=== PATIENT | male | born 2000 | race Caucasian/White ===

== ENCOUNTER → 2020-02-26 13:02 | Outpatient (CLI) | payer OTHER, SELFPAY ==
--- NOTE | ~2020-02-26 | MR_ITS ---
EXAMINATION: MR brain/brain stem wo con EXAM DATE: 02/26/2020 13:40 INDICATION: Syncope. TECHNIQUE: Magnetic resonance imaging (MRI) of the brain/brain stem obtained without contrast. Sagitt al T1, axial diffusion, gradient echo (T2*), T1, T2, FLAIR sequences obtained. There is no prior st udy for comparison. FINDINGS: There are no areas of restricted diffusion to suggest acute infarction. There is no acute hemorrhage seen on the T2*, a hemosiderin sensitive sequence. No intraparenchymal brain mass. The ve ntricles are normal in size. There are no extra-axial collections. Flow voids are seen in the cereb ral arteries on the T2-weighted sequences consistent with their expected patency. The orbits are unr emarkable. Soft tissue is unremarkable. IMPRESSION: 1. Normal brain MRI examination. Reviewed, dictated and finalized at location A.
== END ==
PROVIDERS: PCP Nurse Practitioner Family; Visit Provider Nurse Practitioner Family
DX: R55 Syncope and collapse (principal); R56.9 Unspecified convulsions
CPT/HCPCS: 70551

== ENCOUNTER 2023-10-07 18:25 | Emergency (ER) | payer SELFPAY ==
--- NOTE | 2023-10-07 18:28 | ECG_ITS ---
Measurements Intervals [place] Rate: 71 P: 60 MN: 144 QRS: 44 QRSD: 82 T: 54 QT: 372 QTc: 406 Interpretive Statements SINUS RHYTHM WITH SINUS ARRHYTHMIA NORMAL ECG NO PREVIOUS ECG AVAILABLE FOR COMPARISON Electronically Signed On 10-07-2023 19:17:29 [employer] by Juan Kelly D.O.
[2023-10-07 19:15] LABS: Basophils Absolute Auto 0.1 K/mm3 (0.0-0.1); Basophils Percent Auto 0.5 % (0.2-1.2); Eosinophils Absolute Auto 0.4 K/mm3 (0-0.3); Eosinophils Percent Auto 2.9 % (0-4.4); Hematocrit 48.9 % (42.0-52.0); Hemoglobin 15.3 g/dL (14.0-18.0); Immature Granulocyte Absolute 0.04 K/mm3 (0.00-0.031); Immature Granulocyte Percent A 0.3 % (0-0.5); Lymphocytes Absolute Auto 3.58 K/mm3 (0.9-3.2); Lymphocytes Percent Auto 27.3 % (18.3-44.2); Mean Corpuscular HGB Conc 31.3 g/dl (32-36); Mean Corpuscular Hemoglobin 30.5 pg (26-34); Mean Corpuscular Volume 97.4 fl (80-100); Mean Platelet Volume 9.9 fl (7.4-10.4); Monocytes Absolute Auto 0.8 K/mm3 (0.1-0.6); Monocytes Percent Auto 6.4 % (2.6-8.5); Neutrophils Absolute Auto 8.2 K/mm3 (1.3-6.7); Neutrophils Percent Auto 62.6 % (45.5-73.1); Platelet Count Result 263 k/mm3 (150-375); Red Blood Count 5.02 M/mm3 (4.6-6.20); Red Cell Distribution Width 12.5 % (11.5-14.5); White Blood Count 13.1 K/mm3 (4.5-10.0)
[2023-10-07 19:25] LABS: Alanine Aminotransferase 39 U/L (6-50); Albumin Level 3.8 g/dL (3.5-5.1); Alkaline Phosphatase 68 U/L (38-126); Anion Gap 7 mmol/L (8-16); Aspartate Amino Transferase 34 U/L (17-59); Bilirubin,Total 0.6 mg/dL (0.2-1.3); Blood Urea Nitrogen 10 mg/dL (9-20); Calcium 8.9 mg/dL (8.4-10.2); Carbon Dioxide 21 mmol/L (22-30); Chloride 107 mmol/L (98-107); Estimated Glomerular Filt Rate > 60; Glucose 98 mg/dL (65-110); Potassium 3.9 mmol/L (3.4-5.0); Sodium 135 mmol/L (137-145)
--- NOTE | 2023-10-07 19:29 | PC.NURSE ---
1st call for triage, no answer
== END 2023-10-07 20:52 | disposition left against medical advice (07) ==
PROVIDERS: Emergency Provider Student in an Organized Health Care Education/Training Program; PCP Nurse Practitioner Family
DX: Z53.21 Procedure and treatment not carried out due to patient leaving prior to being seen by health care provider (principal)
CPT/HCPCS: 36415; 80053; 85025; 93005; 99199

== ENCOUNTER 2024-04-02 22:45 | Emergency (ER) | payer OTHER, SELFPAY ==
--- NOTE | ~2024-04-02 | CT_ITS ---
Non-contrast CT scan of the Abdomen and Pelvis Clinical indication: Back pain Technique: 2.5 mm axial scans were obtained through the abdomen and pelvis without intravenous or or al contrast. Dose reduction technique was used on this scan by utilizing automated exposure control a nd iterative reconstruction technique. The dose-length product (DLP) was 1907.15 mGy-cm. Findings: Images through the lung bases reveal no abnormalities. There is no evidence of renal or ureteral calculi. The kidneys and the ureters are nondilated. The liver, spleen, pancreas, gallbladder, and adrenals appear normal. There is no aortic aneurysm. There is no evidence of bowel obstruction. Normal appendix. Images through the pelvis were performed. There is no evidence of ascites or lymphadenopathy. Urinary bladder unremarkable. No pelvic mass seen. Impression: Unremarkable exam. Reviewed, dictated and finalized at [facility]. Impression: Unremarkable exam.
--- NOTE | ~2024-04-02 | US_ITS ---
Testicular ultrasound with doppler. Indication: Left testicular pain. Technique: Real-time sonography the scrotum was performed. Color flow Doppler and Doppler spectral an alysis were performed. Findings: The testes are homogeneous in echotexture bilaterally. There is no evidence of an intrates ticular mass. The right testis measures 2.6 x 2.1 x 2.1 cm and the left 2.5 x 2.1 x 3.1 cm. There is color-flow seen to both testes. Arterial and venous spectral waveforms are seen in both testes. There is no sonographic evidence of torsion. 7 mm left epididymal head cyst or spermatocele probably prese nt. Right epididymis unremarkable. Impression: No significant abnormality seen. No testicular mass or torsion. 7 mm left epididymal head cyst or spermatocele likely present. Reviewed, dictated and finalized at [facility]. Impression: No significant abnormality seen. No testicular mass or torsion. 7 mm left epididymal head cyst or spermatocele likely present.
[2024-04-02 22:46] VITALS: BP 128/83; PULSE 91; RESP 14; TEMP 37.1; O2SAT 94
[2024-04-02 22:55] VITALS: PULSE 81; RESP 15; O2SAT 92
[2024-04-02 23:00] VITALS: O2SAT 94
[2024-04-02 23:09] LABS: Basophils Percent Auto 0.3 % (0.2-1.2); Eosinophils Absolute Auto 0.3 K/mm3 (0-0.3); Eosinophils Percent Auto 2.4 % (0-4.4); Hematocrit 45.2 % (42.0-52.0); Hemoglobin 14.9 g/dL (14.0-18.0); Immature Granulocyte Absolute 0.03 K/mm3 (0.00-0.031); Immature Granulocyte Percent A 0.2 % (0-0.5); Lymphocytes Percent Auto 33.4 % (18.3-44.2); Mean Corpuscular Hemoglobin 30.9 pg (26-34); Mean Corpuscular Volume 93.8 fl (80-100); Mean Platelet Volume 9.7 fl (7.4-10.4); Monocytes Absolute Auto 0.7 K/mm3 (0.1-0.6); Monocytes Percent Auto 5.8 % (2.6-8.5); Neutrophils Absolute Auto 7.1 K/mm3 (1.3-6.7); Neutrophils Percent Auto 57.9 % (45.5-73.1); Platelet Count Result 292 k/mm3 (150-375); Red Blood Count 4.82 M/mm3 (4.6-6.20); Red Cell Distribution Width 12.3 % (11.5-14.5); White Blood Count 12.3 K/mm3 (4.5-10.0)
[2024-04-02 23:19] LABS: Alanine Aminotransferase 41 U/L (6-50); Albumin Level 4.4 g/dL (3.5-5.1); Alkaline Phosphatase 54 U/L (38-126); Anion Gap 9 mmol/L (4-12); Aspartate Amino Transferase 43 U/L (17-59); Bilirubin,Total 0.4 mg/dL (0.2-1.3); Blood Urea Nitrogen 13 mg/dL (9-20); Carbon Dioxide 25 mmol/L (22-30); Chloride 101 mmol/L (98-107); Estimated CRCL calculation 143 ml/min; Estimated Glomerular Filt Rate > 60; Glucose 114 mg/dL (65-110); Lipase 425 U/L (23-300); Potassium 3.9 mmol/L (3.4-5.0); Sodium 135 mmol/L (137-145)
--- NOTE | 2024-04-02 23:42 | PC.NURSE ---
Called to add on ethanol level, spoke with Lorenza.
[2024-04-02] MEDS: KETOROLAC 15 MG/ML VIAL (*BKC) IV PUSH (23:52)
[2024-04-02 23:55] LABS: Ethanol < 10 mg/dL (<10)
--- NOTE | 2024-04-03 00:01 | PC.NURSE ---
US in room with patient.
[2024-04-03 01:04] VITALS: BP 117/73; PULSE 77; RESP 16; O2SAT 93
[2024-04-03 01:23] LABS: Amphetamine Screen Urine Negative (Negative); Barbiturate Screen Urine Negative (Negative); Benzodiazepines Screen Urine Positive (Negative); Cannabinoid Screen Urine Positive (Negative); Cocaine Screen Urine Negative (Negative); Methadone Screen Urine Negative (Negative); Opiate Screen Urine Negative (Negative); Phencyclidine Screen Urine Negative (Negative)
[2024-04-03 01:39] LABS: Bacteria Urine None Seen /hpf; Granular Casts Urine Present /lpf; Mucus Urine Present /lpf; Need Manual Microscopic Reviewed; RBC Urine 0-2 /hpf (0-2); Squamous Epithelial Cell Urine Occasional /hpf (Few); WBC Urine 0-5 /hpf (0-3)
--- NOTE | 2024-04-03 01:44 | ED.GENADULT ---
HPI - General Adult General Chief complaint: Abdominal Pain Stated complaint: LLQ ABD PAIN Time Seen by Provider: 04/02/24 23:10 History of Present Illness HPI narrative: This is a 23-year-old male presenting ED with a chief complaint of left testicle pain. Started 2 hours prior to arrival. Sharp pain in his left testicle that radiates into his lower stomach. Pain is a 3/4. It is constant. He has never had pain like this before it is worse with movement. Patient denies hematuria or dysuria. He denies fevers chills nausea vomiting or diarrhea. Patient is not sexually active. Related Data Allergies Allergy/AdvReac Type Severity Reaction Status Date / Time Penicillins Allergy Unknown Other Verified 04/02/24 22:51 Cat Dander Allergy Mild Other Uncoded 04/02/24 22:51 AMOXICILLIN TRIHYDRATE Allergy Unknown Other Uncoded 04/02/24 22:51 POTASSIUM CLAVULANATE Allergy Unknown Other Uncoded 04/02/24 22:51 Exam Narrative: APPEARANCE: No apparent distress. Head: atraumatic. EYES: EOMI, NOSE: Atraumatic NECK: Trachea midline RESPIRATORY: No increased rate of breathing CARDIOVASCULAR: RRR, ABDOMINAL: Obese, soft nontender no guarding rebound. exam: Buried penis, normal testicular lie, no focal areas of tenderness left testicle is diffusely tender without masses overlying skin change MUSCULOSKELETAl: No obvious deformities NEURO: Alert. Moving 4/4 extremities SKIN:: Warm, dry. Normal color PSYCHIATRIC: Normal affect Course Vital Signs Vital signs: Vital Signs Temperature 98.7 F 04/02/24 22:46 Pulse Rate 91 04/02/24 22:46 Respiratory Rate 14 04/02/24 22:46 Blood Pressure 128/83 04/02/24 22:46 Pulse Oximetry 94 04/02/24 22:46 Oxygen Delivery Room Air 04/02/24 22:46 Temperature 98.7 F 04/02/24 22:46 Pulse Rate 77 04/03/24 01:04 Respiratory Rate 16 04/03/24 01:04 Blood Pressure 117/73 04/03/24 01:04 Pulse Oximetry 93 04/03/24 01:04 Oxygen Delivery Room Air 04/02/24 22:46 Medical Decision Making [facility] Narrative Medical decision making narrative: -Course:This is a 23-year-old male presenting with left-sided testicular pain. Physical exam showed a normal lie, epididymal tenderness, no overlying skin changes. Scrotal ultrasound showed no evidence of torsion. There is a small epididymal cyst. CT abdomen pelvis was also unremarkable. on re-evaluation I went to the room and the patient was soundly sleeping in no distress. He was informed of his results. patient will be discharged on antibiotics for epididymitis and given Urology follow-up. -DDX includes but is not limited to: torsion, epididymitis, orchitis, kidney stone, hernia -Co-morbidities complicating care: obesity -Independent interpretation of studies: labs and imaging reviewed -Interventions: Toradol, levofloxacin -Shared decision making / Disposition: discharge -RX levofloxacin 500 mg bid x10 days. Vital Signs Vital Signs: Vital Signs Temperature 98.7 F 04/02/24 22:46 Pulse Rate 91 04/02/24 22:46 Respiratory Rate 14 04/02/24 22:46 Blood Pressure 128/83 04/02/24 22:46 Pulse Oximetry 94 04/02/24 22:46 Oxygen Delivery Room Air 04/02/24 22:46 Temperature 98.7 F 04/02/24 22:46 Pulse Rate 77 04/03/24 01:04 Respiratory Rate 16 04/03/24 01:04 Blood Pressure 117/73 04/03/24 01:04 Pulse Oximetry 93 04/03/24 01:04 Oxygen Delivery Room Air 04/02/24 22:46 Lab Data 04/02/24 22:54 04/02/24 22:54 Labs: Lab Results 04/02/24 04/03/24 Range/Units 22:54 00:59 WBC 12.3 H (4.5-10.0) K/mm3 RBC 4.82 (4.6-6.20) M/mm3 Hgb 14.9 (14.0-18.0) g/dL Hct 45.2 (42.0-52.0) % MCV 93.8 (80-100) fl MCH 30.9 (26-34) pg MCHC 33.0 (32-36) g/dl RDW 12.3 (11.5-14.5) % Plt Count 292 (150-375) k/mm3 MPV 9.7 (7.4-10.4) fl Immature Gran % (Auto) 0.2 (0-0.5) % Neut % (Auto) 57.9 (45.5-73.1) % Lymph % (Auto)
[2024-04-03 01:46] LABS: Add Urine Microscopic? YES; Appearance Urine Clear (Clear); Color Urine Yellow (Yellow); pH Urine 5.5 (5.0-9.0)
[2024-04-03 01:47] LABS: Bilirubin Urine Negative (Negative); Blood Urine Negative (Negative); Glucose Urine UA Negative (Negative); Ketones Urine Negative (Negative); Nitrate Urine Negative (Negative); Protein Urine 2+ mg/dL (Negative); Specific Grav Ur >= 1.030 (1.001-1.035); Urobilinogen Urine 0.2 mg/dL (<2.0)
[2024-04-03 01:48] LABS: Leukocyte Esterase Ur Negative LEU/UL (Negative)
== END 2024-04-03 02:21 | disposition home or self-care (01) ==
PROVIDERS: Emergency Provider Emergency Medicine; PCP Nurse Practitioner Family
DX: N45.1 Epididymitis (principal)
CPT/HCPCS: 36415; 74176; 76870; 80053; 80307; 81001; 83690; 85025; 93976; 96374; 99284; J1885